=== PATIENT | male | born 1945 | race Caucasian/White ===

== ENCOUNTER 2017-05-22 09:29 | Outpatient (CLI) | payer MEDICARE, BC ==
[2017-05-22 09:49] LABS: Bilirubin Negative (Negative); Blood, Urine Negative (Negative); Clarity Clear (Clear); Glucose, Urine (Dipstick) Negative (Negative); Leukocyte Negative (Negative); Nitrite Negative (Negative); Protein, Urine (Dipstick) Negative (Neg-Trace); Urobilinogen 0.2 mg/dL (0.2-1.0)
[2017-05-22 10:00] LABS: Bacteria/HPF None Seen HPF (None Seen); Other Microscopic Description C&S SET UP; RBC/HPF 0-3 HPF (0-3); Squamous Epithelial 0-3 HPF (0-3); WBC/HPF 0-3 HPF (0-3)
[2017-05-22 10:55] LABS: Anion Gap 14 mmol/L (10-20); BUN (Urea Nitrogen) 22 mg/dL (8.4-25.7); Calc. Creatinine Clearance 0 mL/min (70-130); Calcium 9.3 mg/dL (7.8-10.44); Carbon Dioxide 24 mmol/L (23-31); Chloride 110 mmol/L (98-107); Estimated GFR-MDRD 66; Glucose 137 mg/dL (83-110); Potassium 4.3 mmol/L (3.5-5.1); Sodium 144 mmol/L (136-145)
== END 2017-05-22 09:30 | disposition home or self-care (01) ==
LOC: BURLAB 09:29
PROVIDERS: ATTEND Urology
DX: N40.0 Benign prostatic hyperplasia without lower urinary tract symptoms (principal); R97.20 Elevated prostate specific antigen [PSA]; Z87.438 Personal history of other diseases of male genital organs
CPT/HCPCS: 36415; 80048; 81001; 84153; 87086; 87186

== ENCOUNTER 2017-06-22 09:17 | Outpatient (CLI) | payer BC, MEDICARE ==
[2017-06-22 10:36] LABS: #Basophils 0.1 thou/uL (0.0-0.2); #Eosinphils 0.5 thou/uL (0.0-0.7); #Monocytes 0.7 thou/uL (0.11-0.59); #Neutrophils 4.7 thou/uL (1.40-6.50); %Basophils 1.2 % (0.0-1.0); %Eosinophils 6.2 % (0.0-10.0); %Lymphocytes 24.8 % (21.0-51.0); %Monocytes 8.5 % (0.0-10.0); %Neutrophils 59.3 % (42.0-75.0); Hemoglobin 13.5 g/dL (14.0-18.0); Mean Corpuscular HGB CONC 33.4 g/dL (32.0-36.0); Mean Corpuscular Hemoglobin 32.7 pg (27.0-31.0); Mean Corpuscular Volume 97.8 fl (80.0-94.0); Mean Platelet Volume 8.3 fL (7.4-10.4); Platelet Count 187 thou/uL (130-400); RBC Distribution Width 12.2 % (11.5-14.5); Red Blood Cell (RBC) Count 4.14 mill/uL (4.70-6.10)
[2017-06-22 11:07] LABS: ALT (SGPT) 14 U/L (8-55); AST (SGOT) 12 U/L (5-34); Albumin 3.7 g/dL (3.4-4.8); Alkaline Phosphatase 197 U/L (40-150); Anion Gap 13 mmol/L (10-20); BUN (Urea Nitrogen) 18 mg/dL (8.4-25.7); Bilirubin, Total 0.5 mg/dL (0.2-1.2); Calc. Creatinine Clearance 0 mL/min (70-130); Calcium 9.2 mg/dL (7.8-10.44); Carbon Dioxide 24 mmol/L (23-31); Cardiac Risk 3.8 (Less than 4.5); Chloride 108 mmol/L (98-107); Cholesterol 129 mg/dl (< 200 Desired); Estimated GFR-MDRD 77; Globulin 2.3 g/dL (2.4-3.5); Glucose 150 mg/dL (83-110); HDL Cholesterol 34 mg/dL (>60 Neg Risk); LDL Cholesterol, Calculated 73 mg/dL; Potassium 4.2 mmol/L (3.5-5.1); Sodium 141 mmol/L (136-145); Triglycerides 109 mg/dL (Less than 150)
[2017-06-22 11:10] LABS: Hemoglobin A1c 6.7 % (4.0-6.0)
[2017-06-22 19:07] LABS: Folate (Folic Acid) 14.1 ng/mL (7.0-31.4)
== END 2017-06-22 09:18 | disposition home or self-care (01) ==
LOC: HPCALD 09:17
PROVIDERS: ATTEND Family Medicine
DX: Z12.5 Encounter for screening for malignant neoplasm of prostate (principal); E11.9 Type 2 diabetes mellitus without complications; E78.5 Hyperlipidemia, unspecified; D53.9 Nutritional anemia, unspecified; I10 Essential (primary) hypertension
CPT/HCPCS: 36415; 80053; 80061; 82607; 82746; 83036; 85025; G0103

== ENCOUNTER 2018-09-08 16:46 | Emergency (ER) | payer MEDICARE, BC ==
[2018-09-08] MEDS ORDERED: Adacel (T-DAP) 0.5 ML VIAL ONE (17:25)
== END 2018-09-08 17:50 | disposition home or self-care (01) ==
LOC: BURERS 16:46
DX: S01.21XA Laceration without foreign body of nose, initial encounter (principal); S51.811A Laceration without foreign body of right forearm, initial encounter; E11.9 Type 2 diabetes mellitus without complications; F17.220 Nicotine dependence, chewing tobacco, uncomplicated; V89.9XXA Person injured in unspecified vehicle accident, initial encounter
CPT/HCPCS: 12013; 90715

== ENCOUNTER 2018-09-13 09:06 | Outpatient (CLI) | payer MEDICARE, BC ==
--- NOTE | 2018-09-13 17:41 | RAD ---
RIGHT ANKLE THREE VIEWS 09/13/18 Soft tissue swelling is present around the joint but no acute fractures were seen. Bony spurring at t he tips of the malleoli suggests old injuries here. There is an oblique line through the distal fibul a just above the lateral malleolus on two views. it looks more likely to have been an old ankle injur y than a recent one. This should be correlated with both the clinical exam and history. The amount of soft tissue swelling over this region does not seem any greater than any other place, also making i t more likely that this is an old finding. IMPRESSION: Evidence of old trauma around the ankle joint. Possible oblique fracture of the distal fibula which s eems more likely old than new. See above. POS: HOME
--- NOTE | 2018-09-13 17:43 | RAD ---
RIGHT FOOT THREE VIEWS: 09/13/18 No fracture or acute bony change was seen. Arterial calcifications are evident. The joints are preser lennox. A large calcaneal spur was seen. There is no area of periosteal reaction or bony destruction. IMPRESSION: No acute bony finding. POS: HOME
[2018-09-13 18:00] LABS: Bilirubin Negative (Negative); Blood, Urine Negative (Negative); Clarity CLEAR (Clear); Glucose, Urine (Dipstick) Negative (Negative); Leukocyte Negative (Negative); Nitrite Negative (Negative); Protein, Urine (Dipstick) Negative (Neg-Trace); Specific Gravity, Urine 1.016 (1.002-1.036)
[2018-09-13 18:10] LABS: Bacteria/HPF None Seen HPF (None Seen); Hyaline Casts/LPF 0-3 HYALINE CAST LPF (0-3 Hyaline); RBC/HPF None Seen HPF (0-3); Squamous Epithelial None Seen HPF (0-3); WBC/HPF None Seen HPF (0-3)
[2018-09-13 18:14] LABS: Anion Gap 12 mmol/L (10-20); BUN (Urea Nitrogen) 19 mg/dL (8.4-25.7); Calc. Creatinine Clearance 0 mL/min (70-130); Calcium 9.6 mg/dL (7.8-10.44); Carbon Dioxide 27 mmol/L (23-31); Chloride 105 mmol/L (98-107); Estimated GFR-MDRD 66; Potassium 4.2 mmol/L (3.5-5.1); Sodium 140 mmol/L (136-145)
[2018-09-13 18:23] LABS: Glucose 148 mg/dL (83-110)
== END 2018-09-13 09:07 | disposition home or self-care (01) ==
LOC: BURRAD 09:06
PROVIDERS: ATTEND Family Medicine
DX: Z12.5 Encounter for screening for malignant neoplasm of prostate (principal); M79.671 Pain in right foot; M25.571 Pain in right ankle and joints of right foot; N40.0 Benign prostatic hyperplasia without lower urinary tract symptoms; Z87.438 Personal history of other diseases of male genital organs; Z87.898 Personal history of other specified conditions; Z91.81 History of falling
CPT/HCPCS: 36415; 80048; 81001; 87086; G0103

== ENCOUNTER 2018-09-26 09:26 | Outpatient (CLI) | payer MEDICARE, BC ==
--- NOTE | 2018-09-26 13:25 | RAD ---
RIGHT ANKLE THREE VIEWS: Date: 09-26-18 Comparison: 09-13-18 FINDINGS: There is some healing beginning to occur in the oblique fracture of the distal fibula. There may be 1 -2 mm of displacement than before, but the position is very similar to the prior study. The ankle samia nt space is narrow. A calcaneal spur is present. There is dense ossification at the insertion of the Achilles tendon. Arterial calcifications are present. IMPRESSION: Healing fracture of the distal fibula. POS: [facility]
== END 2018-09-26 09:27 | disposition home or self-care (01) ==
LOC: BURRAD 09:26
PROVIDERS: ATTEND Family Medicine
DX: J40 Bronchitis, not specified as acute or chronic (principal)